=== PATIENT | male | born 1935 | race Caucasian/White ===

== ENCOUNTER 2019-12-25 15:27 | Inpatient (IN) | payer OTHER, MEDICAID, SELFPAY ==
[~2019-12-25] VITALS: Ht 165.1 cm; Wt 44.9 kg
[2019-12-25 15:30] VITALS: BP_SYST 104
[2019-12-25] MEDS ORDERED: NACL 0.9% 1,000 ML IV ONE ×2 (15:31→16:30)
[2019-12-25 16:24] LABS: WHITE BLOOD COUNT (AUTO) 12.7 K/uL (4.8-10.8)
[2019-12-25 16:25] LABS: HEMATOCRIT 52.1 % (36-54); HEMOGLOBIN 16.9 g/dL (14.0-18.0); MEAN CORPUSCULAR HEMOGLOBIN 30 pg (27-31); MEAN CORPUSCULAR HGB CONC 32 % (32-36); MEAN CORPUSCULAR VOLUME 92 fL (79.0-98.0); NEUTROPHILS % (AUTO) 80.6 % (40.0-70.0); PLATELET COUNT (AUTO) 208 K/uL (130-430); RED BLOOD CELL COUNT(AUTO) 5.67 MIL/uL (4.2-6.2); RED CELL DISTRIBUTION WIDTH 16.2 % (9.0-15.0)
[2019-12-25 16:26] LABS: BASOPHILS % (AUTO) 0.4 % (0.0-2.0); EOSINOPHILS % (AUTO) 0.2 % (0.0-4.0); LYMPHOCYTES # (AUTO) 1.6 K/uL (1.0-5.5); LYMPHOCYTES % (AUTO) 12.6 % (20.5-51.5); MONOCYTES # (AUTO) 0.8 K/uL (0.0-1.0); MONOCYTES % (AUTO) 6.2 % (1.7-9.3); NEUTROPHILS # (AUTO) 10.2 K/uL (1.8-7.7)
[2019-12-25 16:30] LABS: ANION GAP 14 (5-15); CALCIUM 8.7 mg/dL (8.4-11.0); CREATININE 2.22 mg/dL (0.55-1.30); GLUCOSE 118 mg/dL (70-99); POTASSIUM 3.6 mmol/L (3.5-5.1); UREA NITROGEN, BLOOD 94 mg/dL (8-21)
[2019-12-25 16:32] LABS: INR 1.4 (0.80-1.20); PROTHROMBIN TIME 13.6 SECS (9.5-12.5)
[2019-12-25 16:33] LABS: CHLORIDE 130 mmol/L (98-107); SODIUM SERUM 168 mmol/L (136-145)
[2019-12-25 16:38] LABS: ALANINE AMINOTRANSFERASE 169 U/L (12-78); ALBUMIN 2.7 g/dL (3.4-4.8); AMYLASE 84 U/L (0-100); ASPARTATE AMINOTRANSFERASE 93 U/L (10-37); LIPASE 567 U/L (73-393); TOTAL BILIRUBIN 1.4 mg/dL (0.0-1.0)
[2019-12-25] MEDS ORDERED: NACL 0.9% 2,000 ML IV ONE (16:45)
[2019-12-25] MEDS ORDERED: cefTRIAXone 1 GM IVPB PREMIX 50 ML IV ONE (17:00)
[2019-12-25] MEDS ORDERED: METO25TA6 PO (17:23)
[2019-12-25] MEDS ORDERED: ACET-2165 PO (17:23)
[2019-12-25] MEDS ORDERED: DOCU-144 PO (17:23)
[2019-12-25] MEDS ORDERED: FAMO-129 PO (17:23)
[2019-12-25] MEDS ORDERED: LIP40 PO (17:23)
[2019-12-25] MEDS ORDERED: GUAI100S14 PO (17:23)
[2019-12-25] MEDS ORDERED: TAMS-11 PO (17:23)
[2019-12-25] MEDS ORDERED: ZOLP5TAB2 PO (17:23)
[2019-12-25] MEDS ORDERED: APIX5TAB PO (17:23)
[2019-12-25] MEDS ORDERED: ANT30 PO (17:23)
[2019-12-25] MEDS ORDERED: 0.45% NACL 1,000 ML IV ONE (17:30)
[2019-12-25] MEDS ORDERED: AZITHROMYCIN 500 MG in NS 250 ML IV ONE (17:30)
[2019-12-25] MEDS ORDERED: MULT-530 PO (17:33)
[2019-12-25] MEDS ORDERED: ASCO500T20 PO (17:33)
[2019-12-25] MEDS ORDERED: omeprazole PO (17:33)
[2019-12-25] MEDS ORDERED: MEGE40TA PO (17:33)
[2019-12-25] MEDS ORDERED: ZINC220T4 PO (17:33)
[2019-12-25] MEDS ORDERED: AZITHROMYCIN 500 MG/VIAL (ZITHROMAX) IV ONE (17:47)
[2019-12-25 18:29] LABS: BILIRUBIN,URINE 2+ (NEGATIVE); BLOOD, URINE 3+ (NEGATIVE); CLARITY/URINE TURBID (CLEAR); COLOR,URINE YELLOW (YELLOW); GLUCOSE,URINE NEGATIVE (NEGATIVE); KETONES,URINE TRACE (NEGATIVE); LEUKOCYTE ESTERASE ,URINE 2+ (NEGATIVE); NITRITE, URINE POSITIVE (NEGATIVE); PROTEIN URINE 2+ (NEGATIVE)
[2019-12-25 18:32] VITALS: BP_SYST 90
[2019-12-25 18:56] LABS: BACTERIA,URINE MANY /HPF (None Seen); RBC,URINE >100 /HPF (0-3); WBC,URINE >100 /HPF (0-3)
[2019-12-25 18:57] LABS: CALCIUM OXALATE CRYSTALS,UR 0-10 /HPF (None Seen); URINE AMORPHOUS PHOSPHATES 3+ /HPF (None Seen)
[2019-12-25 18:58] LABS: COARSE GRANULAR CASTS,URINE 0-10 /LPF (None Seen); MUCUS,URINE 2+ /LPF (None Seen)
[2019-12-25 21:00] VITALS: BP_SYST 137
[2019-12-26 02:00] VITALS: BP_SYST 135
[2019-12-26 07:30] LABS: ANION GAP 15 (5-15); CALCIUM 8.5 mg/dL (8.4-11.0); CREATININE 1.97 mg/dL (0.55-1.30); GLUCOSE 92 mg/dL (70-99); POTASSIUM 3.8 mmol/L (3.5-5.1); UREA NITROGEN, BLOOD 86 mg/dL (8-21)
[2019-12-26 07:33] LABS: BASOPHILS % (AUTO) 0.2 % (0.0-2.0); EOSINOPHILS # (AUTO) 0.1 K/uL (0.0-0.4); EOSINOPHILS % (AUTO) 0.9 % (0.0-4.0); HEMATOCRIT 47.6 % (36-54); HEMOGLOBIN 15.5 g/dL (14.0-18.0); LYMPHOCYTES # (AUTO) 2.2 K/uL (1.0-5.5); LYMPHOCYTES % (AUTO) 14.3 % (20.5-51.5); MEAN CORPUSCULAR HEMOGLOBIN 30 pg (27-31); MEAN CORPUSCULAR HGB CONC 33 % (32-36); MEAN CORPUSCULAR VOLUME 91 fL (79.0-98.0); MONOCYTES # (AUTO) 1.3 K/uL (0.0-1.0); MONOCYTES % (AUTO) 8.7 % (1.7-9.3); NEUTROPHILS # (AUTO) 11.5 K/uL (1.8-7.7); NEUTROPHILS % (AUTO) 75.9 % (40.0-70.0); PLATELET COUNT (AUTO) 164 K/uL (130-430); RED CELL DISTRIBUTION WIDTH 16.3 % (9.0-15.0); WHITE BLOOD COUNT (AUTO) 15.2 K/uL (4.8-10.8)
[2019-12-26 07:35] LABS: ALANINE AMINOTRANSFERASE 164 U/L (12-78); ALBUMIN 2.3 g/dL (3.4-4.8); ASPARTATE AMINOTRANSFERASE 114 U/L (10-37); TOTAL BILIRUBIN 1.1 mg/dL (0.0-1.0)
[2019-12-26 08:00] VITALS: BP_SYST 114
[2019-12-26 08:35] LABS: SODIUM SERUM 165 mmol/L (136-145)
[2019-12-26 08:36] LABS: CHLORIDE 130 mmol/L (98-107)
[2019-12-26] MEDS: cefTRIAXone 1 GM in D5W 50 ML IV SCH (09:00)
[2019-12-26] MEDS: AZITHROMYCIN 500 MG in NS 250 ML IV SCH (09:09)
[2019-12-26] MEDS ORDERED: 0.45% NACL 1,000 ML IV SCH (09:15)
[2019-12-26] MEDS: D5W 1,000 ML IV SCH ×2 (10:30→20:30)
[2019-12-26 12:00] VITALS: BP_SYST 103
[2019-12-26] MEDS: BALSAM PERU/CASTOR OIL 60 GM OINT...G. TP SCH ×2 (15:30→16:45)
[2019-12-26 16:00] VITALS: BP_SYST 119
[2019-12-26 20:00] VITALS: BP_SYST 146; BP_SYST 99
[2019-12-27] VITALS: BP_SYST 123
[2019-12-27] MEDS: D5W 1,000 ML IV SCH ×2 (05:43→15:15)
[2019-12-27 07:47] LABS: EOSINOPHILS # (AUTO) 0.2 K/uL (0.0-0.4); EOSINOPHILS % (AUTO) 1.2 % (0.0-4.0); HEMATOCRIT 43.1 % (36-54); HEMOGLOBIN 13.9 g/dL (14.0-18.0); LYMPHOCYTES # (AUTO) 1.8 K/uL (1.0-5.5); LYMPHOCYTES % (AUTO) 13.8 % (20.5-51.5); MEAN CORPUSCULAR HEMOGLOBIN 29 pg (27-31); MEAN CORPUSCULAR HGB CONC 32 % (32-36); MEAN CORPUSCULAR VOLUME 91 fL (79.0-98.0); MONOCYTES # (AUTO) 0.7 K/uL (0.0-1.0); MONOCYTES % (AUTO) 5.1 % (1.7-9.3); NEUTROPHILS # (AUTO) 10.4 K/uL (1.8-7.7); NEUTROPHILS % (AUTO) 79.9 % (40.0-70.0); PLATELET COUNT (AUTO) 132 K/uL (130-430); RED BLOOD CELL COUNT(AUTO) 4.73 MIL/uL (4.2-6.2); RED CELL DISTRIBUTION WIDTH 16.4 % (9.0-15.0)
[2019-12-27 08:00] VITALS: BP_SYST 101
[2019-12-27] MEDS: cefTRIAXone 1 GM in D5W 50 ML IV SCH (08:55)
[2019-12-27] MEDS: AZITHROMYCIN 500 MG in NS 250 ML IV SCH (09:30)
[2019-12-27 09:33] LABS: POTASSIUM 3.3 mmol/L (3.5-5.1); SODIUM SERUM 164 mmol/L (136-145)
[2019-12-27 09:34] LABS: ALANINE AMINOTRANSFERASE 613 U/L (12-78); ANION GAP 12 (5-15); ASPARTATE AMINOTRANSFERASE 780 U/L (10-37); CALCIUM 8.1 mg/dL (8.4-11.0); CHLORIDE 132 mmol/L (98-107); CREATININE 1.77 mg/dL (0.55-1.30); GLUCOSE 93 mg/dL (70-99); UREA NITROGEN, BLOOD 69 mg/dL (8-21)
[2019-12-27 09:35] LABS: PHOSPHORUS 1.7 mg/dL (2.7-4.5)
[2019-12-27 10:14] LABS: HEPATITIS A AB, IgM Negative (Negative); HEPATITIS B CORE AB, IgM Negative (Negative); HEPATITIS B SURFACE AG Negative (Negative)
[2019-12-27] MEDS ORDERED: POTASSIUM CHLORIDE 20 MEQ in NS 250 ML IV ONE (10:15)
[2019-12-27] MEDS: BALSAM PERU/CASTOR OIL 60 GM OINT...G. TP SCH ×2 (11:31)
[2019-12-27] MEDS ORDERED: POTASSIUM CHLORIDE IV ONE (11:45)
[2019-12-27 12:00] VITALS: BP_SYST 118
[2019-12-27] MEDS ORDERED: K PHOS 15 MM in NS 250 ML IV ONE (14:30)
[2019-12-27 16:00] VITALS: BP_SYST 112
[2019-12-27 20:00] VITALS: BP_SYST 110
[2019-12-28] VITALS: BP_SYST 119
[2019-12-28] MEDS: D5W 1,000 ML IV SCH ×3 (03:07→15:15)
[2019-12-28 07:06] LABS: INR 1.4 (0.80-1.20); PROTHROMBIN TIME 13.7 SECS (9.5-12.5)
[2019-12-28 07:15] LABS: ANION GAP 10 (5-15); CALCIUM 7.4 mg/dL (8.4-11.0); CREATININE 1.48 mg/dL (0.55-1.30); GLUCOSE 122 mg/dL (70-99); PHOSPHORUS 2.3 mg/dL (2.7-4.5); SODIUM SERUM 153 mmol/L (136-145); UREA NITROGEN, BLOOD 45 mg/dL (8-21)
[2019-12-28 07:37] LABS: CHLORIDE 123 mmol/L (98-107)
[2019-12-28 08:00] VITALS: BP_SYST 96
[2019-12-28] MEDS: cefTRIAXone 1 GM in D5W 50 ML IV SCH (09:27)
[2019-12-28] MEDS: AZITHROMYCIN 500 MG in NS 250 ML IV SCH (10:00)
[2019-12-28 12:00] VITALS: BP_SYST 89
[2019-12-28] MEDS ORDERED: ALBUMIN HUMAN 25% 200 ML IV ONE (14:30)
[2019-12-28] MEDS: BALSAM PERU/CASTOR OIL 60 GM OINT...G. TP SCH ×2 (15:15)
[2019-12-28 16:00] VITALS: BP_SYST 111
[2019-12-28] MEDS ORDERED: K PHOS 30 MM in NS 250 ML IV ONE (16:30)
[2019-12-28 20:32] VITALS: BP_SYST 91
[2019-12-29 00:20] VITALS: BP_SYST 92
[2019-12-29] MEDS: D5W 1,000 ML IV SCH ×3 (06:00→16:42)
[2019-12-29] MEDS: BALSAM PERU/CASTOR OIL 60 GM OINT...G. TP SCH (06:00)
[2019-12-29 07:18] LABS: BASOPHILS % (AUTO) 0.1 % (0.0-2.0); EOSINOPHILS # (AUTO) 0.1 K/uL (0.0-0.4); EOSINOPHILS % (AUTO) 1.7 % (0.0-4.0); HEMATOCRIT 36.7 % (36-54); HEMOGLOBIN 12.5 g/dL (14.0-18.0); LYMPHOCYTES % (AUTO) 27.3 % (20.5-51.5); MEAN CORPUSCULAR HEMOGLOBIN 30 pg (27-31); MEAN CORPUSCULAR HGB CONC 34 % (32-36); MEAN CORPUSCULAR VOLUME 89 fL (79.0-98.0); MONOCYTES # (AUTO) 0.3 K/uL (0.0-1.0); NEUTROPHILS # (AUTO) 4.9 K/uL (1.8-7.7); NEUTROPHILS % (AUTO) 66.9 % (40.0-70.0); PLATELET COUNT (AUTO) 113 K/uL (130-430); RED BLOOD CELL COUNT(AUTO) 4.15 MIL/uL (4.2-6.2); RED CELL DISTRIBUTION WIDTH 15.7 % (9.0-15.0); WHITE BLOOD COUNT (AUTO) 7.3 K/uL (4.8-10.8)
[2019-12-29 07:40] LABS: ANION GAP 13 (5-15); CALCIUM 7.1 mg/dL (8.4-11.0); CHLORIDE 114 mmol/L (98-107); GLUCOSE 82 mg/dL (70-99); PHOSPHORUS 3.1 mg/dL (2.7-4.5); POTASSIUM 3.1 mmol/L (3.5-5.1); SODIUM SERUM 145 mmol/L (136-145); UREA NITROGEN, BLOOD 26 mg/dL (8-21)
[2019-12-29 08:00] VITALS: BP_SYST 110
[2019-12-29] MEDS: cefTRIAXone 1 GM in D5W 50 ML IV SCH (09:09)
[2019-12-29] MEDS: AZITHROMYCIN 500 MG in NS 250 ML IV SCH (09:41)
[2019-12-29 11:53] LABS: CREATININE, URINE 108.8 mg/dL; MICROALBUMIN URINE RANDOM 77.5 ug/ml (NOT ESTABLISHED)
[2019-12-29 12:00] VITALS: BP_SYST 109
[2019-12-29] MEDS: POTASSIUM CHLORIDE 10 MEQ TAB.PRT.SR PO SCH (13:15)
[2019-12-29 16:00] VITALS: BP_SYST 116
[2019-12-29 20:00] VITALS: BP_SYST 132
[2019-12-30] VITALS: BP_SYST 111
[2019-12-30] MEDS: D5W 1,000 ML IV SCH ×2 (08:25→19:15)
[2019-12-30] MEDS: BALSAM PERU/CASTOR OIL 60 GM OINT...G. TP SCH (08:33)
[2019-12-30] MEDS: cefTRIAXone 1 GM in D5W 50 ML IV SCH (08:34)
[2019-12-30] MEDS: POTASSIUM CHLORIDE 10 MEQ TAB.PRT.SR PO SCH (09:03)
[2019-12-30] MEDS: AZITHROMYCIN 500 MG in NS 250 ML IV SCH (09:50)
[2019-12-30 12:29] VITALS: BP_SYST 98
[2019-12-30] MEDS ORDERED: MEGESTROL ACETATE 400 MG/10 ML UDC PO ONE (14:45)
[2019-12-30 15:01] LABS: ALANINE AMINOTRANSFERASE 209 U/L (12-78); ALBUMIN 2.1 g/dL (3.4-4.8); ANION GAP 10 (5-15); ASPARTATE AMINOTRANSFERASE 77 U/L (10-37); CALCIUM 7.1 mg/dL (8.4-11.0); CHLORIDE 113 mmol/L (98-107); CREATININE 1.16 mg/dL (0.55-1.30); GLUCOSE 105 mg/dL (70-99); POTASSIUM 3.3 mmol/L (3.5-5.1); SODIUM SERUM 142 mmol/L (136-145); TOTAL BILIRUBIN 1.2 mg/dL (0.0-1.0); UREA NITROGEN, BLOOD 18 mg/dL (8-21)
[2019-12-30 16:13] VITALS: BP_SYST 132
[2019-12-30 20:00] VITALS: BP_SYST 102
[2019-12-30] MEDS ORDERED: IPRATROPIUM/ALBUTEROL SULFATE 3 ML AMPUL.NEB (DUONEB) INH PRN (21:15)
[2019-12-31] VITALS: BP_SYST 109
[2019-12-31 06:51] LABS: ALANINE AMINOTRANSFERASE 176 U/L (12-78); ANION GAP 10 (5-15); ASPARTATE AMINOTRANSFERASE 66 U/L (10-37); CALCIUM 7.7 mg/dL (8.4-11.0); CHLORIDE 108 mmol/L (98-107); CREATININE 1.06 mg/dL (0.55-1.30); GLUCOSE 86 mg/dL (70-99); SODIUM SERUM 139 mmol/L (136-145); TOTAL BILIRUBIN 1.3 mg/dL (0.0-1.0); UREA NITROGEN, BLOOD 17 mg/dL (8-21)
[2019-12-31 08:20] VITALS: BP_SYST 109
[2019-12-31 08:32] LABS: POTASSIUM 2.9 mmol/L (3.5-5.1)
[2019-12-31] MEDS: D5W 1,000 ML IV SCH (08:35)
[2019-12-31] MEDS: BALSAM PERU/CASTOR OIL 60 GM OINT...G. TP SCH (09:00)
[2019-12-31] MEDS: POTASSIUM CHLORIDE 10 MEQ TAB.PRT.SR PO SCH (10:15)
[2019-12-31] MEDS: MEGESTROL ACETATE 400 MG/10 ML UDC PO SCH (10:16)
[2019-12-31] MEDS: cefTRIAXone 1 GM in D5W 50 ML IV SCH (10:16)
[2019-12-31 12:30] VITALS: BP_SYST 103
[2019-12-31] MEDS ORDERED: SPIRONOLACTONE 25 MG TABLET (ALDACTONE) PO ONE (15:00)
[2019-12-31] MEDS ORDERED: DEXTROSE 50% JECT 50 ML DISP.SYRIN IVP PRN (16:00)
[2019-12-31] MEDS ORDERED: INSULIN REGULAR, HUMAN 100 UNITS/ML, 10 ML VIAL (humuLIN R) SUBCUT PRN (16:00)
[2019-12-31] MEDS ORDERED: *TPN PER PHARMACY XX PRN (16:00)
[2019-12-31 16:32] LABS: INR 1.3 (0.80-1.20); PROTHROMBIN TIME 13.1 SECS (9.5-12.5)
[2019-12-31 17:16] VITALS: BP_SYST 116
[2019-12-31] MEDS: D5/0.45 NS 1,000 ML IV SCH (17:16)
[2019-12-31 20:10] VITALS: BP_SYST 137
[2019-12-31] MEDS: POTASSIUM CHLORIDE 20 MEQ TAB.PRT.SR PO SCH (20:18)
[2020-01-01 00:10] VITALS: BP_SYST 151
[2020-01-01] MEDS: D5/0.45 NS 1,000 ML IV SCH ×2 (06:23→19:50)
[2020-01-01] MEDS: cefTRIAXone 1 GM in D5W 50 ML IV SCH (07:57)
[2020-01-01] MEDS: POTASSIUM CHLORIDE 20 MEQ TAB.PRT.SR PO SCH ×2 (07:58→21:53)
[2020-01-01] MEDS: BALSAM PERU/CASTOR OIL 60 GM OINT...G. TP SCH (07:58)
[2020-01-01] MEDS: MEGESTROL ACETATE 400 MG/10 ML UDC PO SCH (07:58)
[2020-01-01 08:00] VITALS: BP_SYST 125
[2020-01-01 08:21] LABS: ALANINE AMINOTRANSFERASE 161 U/L (12-78); ALBUMIN 1.9 g/dL (3.4-4.8); ANION GAP 8 (5-15); ASPARTATE AMINOTRANSFERASE 74 U/L (10-37); CALCIUM 7.6 mg/dL (8.4-11.0); CHLORIDE 108 mmol/L (98-107); CREATININE 0.89 mg/dL (0.55-1.30); GLUCOSE 85 mg/dL (70-99); PHOSPHORUS 1.4 mg/dL (2.7-4.5); POTASSIUM 3.7 mmol/L (3.5-5.1); SODIUM SERUM 136 mmol/L (136-145); TRIGLYCERIDES 87 mg/dL (30-150); UREA NITROGEN, BLOOD 12 mg/dL (8-21)
[2020-01-01] MEDS: SPIRONOLACTONE 25 MG TABLET (ALDACTONE) PO SCH (08:42)
[2020-01-01 12:35] VITALS: BP_SYST 119
[2020-01-01] MEDS ORDERED: NA PHOS 30 MM in NS 250 ML IV ONE (17:00)
[2020-01-01 18:00] VITALS: BP_SYST 102
[2020-01-01 19:30] VITALS: BP_SYST 94
[2020-01-01] MEDS: FAT EMULSIONS 250 ML IV SCH (20:36)
[2020-01-01] MEDS ORDERED: TPN PERIPHERAL IV SCH ×9 (21:00)
[2020-01-01] MEDS ORDERED: SODIUM ACETATE IV SCH ×9 (21:00)
[2020-01-01] MEDS ORDERED: [UNRECOGNIZED DRUG - OTHER] IV SCH ×9 (21:00)
[2020-01-01] MEDS ORDERED: NA PHOS IV SCH ×9 (21:00)
[2020-01-02] VITALS: BP_SYST 98
[2020-01-02 07:56] LABS: ALANINE AMINOTRANSFERASE 126 U/L (12-78); ALBUMIN 1.6 g/dL (3.4-4.8); ANION GAP 11 (5-15); ASPARTATE AMINOTRANSFERASE 50 U/L (10-37); CALCIUM 7.3 mg/dL (8.4-11.0); CHLORIDE 107 mmol/L (98-107); GLUCOSE 92 mg/dL (70-99); PHOSPHORUS 3.6 mg/dL (2.7-4.5); POTASSIUM 3.5 mmol/L (3.5-5.1); SODIUM SERUM 137 mmol/L (136-145); TOTAL BILIRUBIN 0.7 mg/dL (0.0-1.0); UREA NITROGEN, BLOOD 11 mg/dL (8-21)
[2020-01-02 08:08] VITALS: BP_SYST 128
[2020-01-02] MEDS: SPIRONOLACTONE 25 MG TABLET (ALDACTONE) PO SCH (09:00)
[2020-01-02] MEDS: MEGESTROL ACETATE 400 MG/10 ML UDC PO SCH (09:00)
[2020-01-02] MEDS: POTASSIUM CHLORIDE 20 MEQ TAB.PRT.SR PO SCH ×2 (09:00→21:19)
[2020-01-02] MEDS: cefTRIAXone 1 GM in D5W 50 ML IV SCH (09:36)
[2020-01-02] MEDS: BALSAM PERU/CASTOR OIL 60 GM OINT...G. TP SCH (09:37)
[2020-01-02 12:00] VITALS: BP_SYST 113
[2020-01-02] MEDS: D5/0.45 NS 1,000 ML IV SCH (15:00)
[2020-01-02 16:21] VITALS: BP_SYST 108
[2020-01-02] MEDS ORDERED: [UNRECOGNIZED DRUG - OTHER] IV SCH ×9 (21:00)
[2020-01-02] MEDS ORDERED: SODIUM ACETATE IV SCH ×9 (21:00)
[2020-01-02] MEDS ORDERED: TPN PERIPHERAL IV SCH ×9 (21:00)
[2020-01-02] MEDS ORDERED: POTASSIUM ACETATE IV SCH ×9 (21:00)
[2020-01-02] MEDS: FAT EMULSIONS 250 ML IV SCH (21:20)
[2020-01-02 21:29] VITALS: BP_SYST 110
[2020-01-03] MEDS: D5/0.45 NS 1,000 ML IV SCH ×2 (01:05→14:30)
[2020-01-03 01:12] VITALS: BP_SYST 106
[2020-01-03 07:46] LABS: BASOPHILS % (AUTO) 0.2 % (0.0-2.0); EOSINOPHILS # (AUTO) 0.1 K/uL (0.0-0.4); EOSINOPHILS % (AUTO) 0.9 % (0.0-4.0); HEMATOCRIT 36.4 % (36-54); HEMOGLOBIN 12.3 g/dL (14.0-18.0); LYMPHOCYTES # (AUTO) 1.5 K/uL (1.0-5.5); LYMPHOCYTES % (AUTO) 25.1 % (20.5-51.5); MEAN CORPUSCULAR HEMOGLOBIN 30 pg (27-31); MEAN CORPUSCULAR HGB CONC 34 % (32-36); MEAN CORPUSCULAR VOLUME 89 fL (79.0-98.0); MONOCYTES # (AUTO) 0.5 K/uL (0.0-1.0); MONOCYTES % (AUTO) 7.7 % (1.7-9.3); NEUTROPHILS # (AUTO) 4.1 K/uL (1.8-7.7); NEUTROPHILS % (AUTO) 66.1 % (40.0-70.0); PLATELET COUNT (AUTO) 106 K/uL (130-430); RED CELL DISTRIBUTION WIDTH 15.3 % (9.0-15.0); WHITE BLOOD COUNT (AUTO) 6.1 K/uL (4.8-10.8)
[2020-01-03 08:00] VITALS: BP_SYST 128
[2020-01-03 08:20] LABS: ALANINE AMINOTRANSFERASE 111 U/L (12-78); ALBUMIN 1.6 g/dL (3.4-4.8); ANION GAP 7 (5-15); ASPARTATE AMINOTRANSFERASE 50 U/L (10-37); CALCIUM 7.5 mg/dL (8.4-11.0); CHLORIDE 105 mmol/L (98-107); CREATININE 0.82 mg/dL (0.55-1.30); GLUCOSE 82 mg/dL (70-99); POTASSIUM 3.8 mmol/L (3.5-5.1); SODIUM SERUM 136 mmol/L (136-145); TOTAL BILIRUBIN 0.6 mg/dL (0.0-1.0); UREA NITROGEN, BLOOD 15 mg/dL (8-21)
[2020-01-03] MEDS: POTASSIUM CHLORIDE 20 MEQ TAB.PRT.SR PO SCH ×2 (10:06→21:55)
[2020-01-03] MEDS: BALSAM PERU/CASTOR OIL 60 GM OINT...G. TP SCH (10:06)
[2020-01-03] MEDS: SPIRONOLACTONE 25 MG TABLET (ALDACTONE) PO SCH (10:06)
[2020-01-03] MEDS: MEGESTROL ACETATE 400 MG/10 ML UDC PO SCH (10:06)
[2020-01-03] MEDS: cefTRIAXone 1 GM in D5W 50 ML IV SCH (10:06)
[2020-01-03 12:00] VITALS: BP_SYST 126
[2020-01-03 16:15] VITALS: BP_SYST 112
[2020-01-03 21:45] VITALS: BP_SYST 118
[2020-01-03] MEDS: FAT EMULSIONS 250 ML IV SCH (21:55)
[2020-01-03] MEDS: TPN CENTRAL IV SCH ×10 (21:55)
[2020-01-03] MEDS: POTASSIUM ACETATE IV SCH ×10 (21:55)
[2020-01-03] MEDS: SODIUM ACETATE IV SCH ×10 (21:55)
[2020-01-03] MEDS: K PHOS IV SCH ×10 (21:55)
[2020-01-03] MEDS: [UNRECOGNIZED DRUG - OTHER] IV SCH ×10 (21:55)
[2020-01-04] VITALS: BP_SYST 124
[2020-01-04] MEDS: D5/0.45 NS 1,000 ML IV SCH ×2 (05:50→17:09)
[2020-01-04 07:14] LABS: BASOPHILS % (AUTO) 0.3 % (0.0-2.0); EOSINOPHILS # (AUTO) 0.1 K/uL (0.0-0.4); EOSINOPHILS % (AUTO) 1.1 % (0.0-4.0); HEMATOCRIT 32.7 % (36-54); HEMOGLOBIN 11.1 g/dL (14.0-18.0); LYMPHOCYTES # (AUTO) 1.6 K/uL (1.0-5.5); LYMPHOCYTES % (AUTO) 27.9 % (20.5-51.5); MEAN CORPUSCULAR HEMOGLOBIN 30 pg (27-31); MEAN CORPUSCULAR HGB CONC 34 % (32-36); MEAN CORPUSCULAR VOLUME 89 fL (79.0-98.0); MONOCYTES # (AUTO) 0.4 K/uL (0.0-1.0); MONOCYTES % (AUTO) 6.7 % (1.7-9.3); NEUTROPHILS # (AUTO) 3.6 K/uL (1.8-7.7); PLATELET COUNT (AUTO) 109 K/uL (130-430); RED CELL DISTRIBUTION WIDTH 15.3 % (9.0-15.0); WHITE BLOOD COUNT (AUTO) 5.6 K/uL (4.8-10.8)
[2020-01-04 07:41] LABS: ALANINE AMINOTRANSFERASE 107 U/L (12-78); ALBUMIN 1.5 g/dL (3.4-4.8); ANION GAP 5 (5-15); ASPARTATE AMINOTRANSFERASE 52 U/L (10-37); CALCIUM 7.5 mg/dL (8.4-11.0); CHLORIDE 103 mmol/L (98-107); GLUCOSE 112 mg/dL (70-99); PHOSPHORUS 1.8 mg/dL (2.7-4.5); POTASSIUM 4.3 mmol/L (3.5-5.1); SODIUM SERUM 132 mmol/L (136-145); TOTAL BILIRUBIN 0.6 mg/dL (0.0-1.0); TRIGLYCERIDES 48 mg/dL (30-150); UREA NITROGEN, BLOOD 16 mg/dL (8-21)
[2020-01-04 08:00] VITALS: BP_SYST 112
[2020-01-04] MEDS: MEGESTROL ACETATE 400 MG/10 ML UDC PO SCH (08:03)
[2020-01-04] MEDS: POTASSIUM CHLORIDE 20 MEQ TAB.PRT.SR PO SCH ×2 (08:03→21:00)
[2020-01-04] MEDS: cefTRIAXone 1 GM in D5W 50 ML IV SCH (08:03)
[2020-01-04] MEDS: BALSAM PERU/CASTOR OIL 60 GM OINT...G. TP SCH (08:03)
[2020-01-04] MEDS: SPIRONOLACTONE 25 MG TABLET (ALDACTONE) PO SCH (08:25)
[2020-01-04 12:00] VITALS: BP_SYST 103
[2020-01-04 16:00] VITALS: BP_SYST 111
[2020-01-04] MEDS ORDERED: NA PHOS 30 MM in NS 250 ML IV ONE (18:00)
[2020-01-04 20:00] VITALS: BP_SYST 127
[2020-01-04] MEDS: FAT EMULSIONS 250 ML IV SCH (20:31)
[2020-01-04] MEDS ORDERED: TPN CENTRAL IV SCH ×10 (21:00)
[2020-01-04] MEDS ORDERED: NA PHOS IV SCH ×10 (21:00)
[2020-01-04] MEDS ORDERED: SODIUM CHLORIDE IV SCH ×10 (21:00)
[2020-01-04] MEDS ORDERED: D5/0.45 NS 1,000 ML IV SCH (21:00)
[2020-01-04] MEDS ORDERED: SODIUM ACETATE IV SCH ×10 (21:00)
[2020-01-04] MEDS ORDERED: [UNRECOGNIZED DRUG - OTHER] IV SCH ×10 (21:00)
[2020-01-05] VITALS: BP_SYST 118
[2020-01-05] MEDS: [UNRECOGNIZED DRUG - OTHER] IV SCH ×10 (07:20)
[2020-01-05] MEDS: TPN CENTRAL IV SCH ×10 (07:20)
[2020-01-05] MEDS: SODIUM ACETATE IV SCH ×10 (07:20)
[2020-01-05] MEDS: K PHOS IV SCH ×10 (07:20)
[2020-01-05] MEDS: POTASSIUM ACETATE IV SCH ×10 (07:20)
[2020-01-05 07:48] LABS: ALANINE AMINOTRANSFERASE 96 U/L (12-78); ALBUMIN 1.3 g/dL (3.4-4.8); ANION GAP 7 (5-15); ASPARTATE AMINOTRANSFERASE 41 U/L (10-37); CALCIUM 7.3 mg/dL (8.4-11.0); CHLORIDE 103 mmol/L (98-107); GLUCOSE 114 mg/dL (70-99); PHOSPHORUS 4.9 mg/dL (2.7-4.5); POTASSIUM 4.2 mmol/L (3.5-5.1); SODIUM SERUM 133 mmol/L (136-145); TOTAL BILIRUBIN 0.5 mg/dL (0.0-1.0); UREA NITROGEN, BLOOD 17 mg/dL (8-21)
[2020-01-05 08:00] VITALS: BP_SYST 117
[2020-01-05] MEDS: SPIRONOLACTONE 25 MG TABLET (ALDACTONE) PO SCH (09:27)
[2020-01-05] MEDS: cefTRIAXone 1 GM in D5W 50 ML IV SCH (09:27)
[2020-01-05] MEDS: MEGESTROL ACETATE 400 MG/10 ML UDC PO SCH (09:28)
[2020-01-05] MEDS: POTASSIUM CHLORIDE 20 MEQ TAB.PRT.SR PO SCH ×2 (09:28→21:03)
[2020-01-05] MEDS: BALSAM PERU/CASTOR OIL 60 GM OINT...G. TP SCH (09:28)
[2020-01-05 12:00] VITALS: BP_SYST 108
[2020-01-05 16:00] VITALS: BP_SYST 123
[2020-01-05] MEDS ORDERED: INSULIN REGULAR, HUMAN 100 UNITS/ML, 10 ML VIAL (humuLIN R) SUBCUT PRN (18:00)
[2020-01-05 20:00] VITALS: BP_SYST 121
[2020-01-05] MEDS: FAT EMULSIONS 250 ML IV SCH (20:18)
[2020-01-05] MEDS ORDERED: SODIUM CHLORIDE IV SCH ×9 (21:00)
[2020-01-05] MEDS ORDERED: SODIUM ACETATE IV SCH ×9 (21:00)
[2020-01-05] MEDS ORDERED: [UNRECOGNIZED DRUG - OTHER] IV SCH ×9 (21:00)
[2020-01-05] MEDS ORDERED: TPN CENTRAL IV SCH ×9 (21:00)
[2020-01-06] VITALS: BP_SYST 127
[2020-01-06 08:15] VITALS: BP_SYST 127
[2020-01-06] MEDS ORDERED: ACETAMINOPHEN 325 MG TABLET PO PRN (08:15)
[2020-01-06] MEDS ORDERED: ACETAMINOPHEN 325 MG TABLET ONE (08:30)
[2020-01-06] MEDS: SPIRONOLACTONE 25 MG TABLET (ALDACTONE) PO SCH (08:44)
[2020-01-06] MEDS: cefTRIAXone 1 GM in D5W 50 ML IV SCH (08:44)
[2020-01-06] MEDS: MEGESTROL ACETATE 400 MG/10 ML UDC PO SCH (08:44)
[2020-01-06] MEDS: POTASSIUM CHLORIDE 20 MEQ TAB.PRT.SR PO SCH ×2 (08:44→21:26)
[2020-01-06] MEDS: BALSAM PERU/CASTOR OIL 60 GM OINT...G. TP SCH (08:45)
[2020-01-06 17:30] LABS: ALANINE AMINOTRANSFERASE 68 U/L (12-78); ALBUMIN 1.3 g/dL (3.4-4.8); ANION GAP 4 (5-15); ASPARTATE AMINOTRANSFERASE 30 U/L (10-37); CALCIUM 7.8 mg/dL (8.4-11.0); CHLORIDE 108 mmol/L (98-107); CREATININE 0.81 mg/dL (0.55-1.30); GLUCOSE 120 mg/dL (70-99); PHOSPHORUS 1.6 mg/dL (2.7-4.5); POTASSIUM 4.6 mmol/L (3.5-5.1); SODIUM SERUM 137 mmol/L (136-145); TOTAL BILIRUBIN 0.4 mg/dL (0.0-1.0); UREA NITROGEN, BLOOD 22 mg/dL (8-21)
[2020-01-06] MEDS ORDERED: SODIUM CHLORIDE IV SCH ×9 (21:00)
[2020-01-06] MEDS ORDERED: TPN CENTRAL IV SCH ×9 (21:00)
[2020-01-06] MEDS ORDERED: SODIUM ACETATE IV SCH ×9 (21:00)
[2020-01-06] MEDS ORDERED: [UNRECOGNIZED DRUG - OTHER] IV SCH ×9 (21:00)
[2020-01-06] MEDS: FAT EMULSIONS 250 ML IV SCH (21:26)
[2020-01-06 21:30] VITALS: BP_SYST 116
[2020-01-07] VITALS: BP_SYST 122
[2020-01-07 08:00] VITALS: BP_SYST 104
[2020-01-07] MEDS: cefTRIAXone 1 GM in D5W 50 ML IV SCH (08:49)
[2020-01-07] MEDS: SPIRONOLACTONE 25 MG TABLET (ALDACTONE) PO SCH (08:50)
[2020-01-07] MEDS: POTASSIUM CHLORIDE 20 MEQ TAB.PRT.SR PO SCH ×2 (08:50→15:15)
[2020-01-07] MEDS: MEGESTROL ACETATE 400 MG/10 ML UDC PO SCH (08:51)
[2020-01-07] MEDS: BALSAM PERU/CASTOR OIL 60 GM OINT...G. TP SCH (08:51)
[2020-01-07 09:04] LABS: ALANINE AMINOTRANSFERASE 70 U/L (12-78); ALBUMIN 1.4 g/dL (3.4-4.8); ANION GAP 4 (5-15); ASPARTATE AMINOTRANSFERASE 30 U/L (10-37); CALCIUM 7.9 mg/dL (8.4-11.0); CHLORIDE 107 mmol/L (98-107); CREATININE 0.83 mg/dL (0.55-1.30); GLUCOSE 108 mg/dL (70-99); PHOSPHORUS 1.2 mg/dL (2.7-4.5); POTASSIUM 4.6 mmol/L (3.5-5.1); SODIUM SERUM 137 mmol/L (136-145); TOTAL BILIRUBIN 0.4 mg/dL (0.0-1.0); UREA NITROGEN, BLOOD 23 mg/dL (8-21)
[2020-01-07 12:00] VITALS: BP_SYST 118
[2020-01-07 16:20] VITALS: BP_SYST 121
[2020-01-07 20:00] VITALS: BP_SYST 127
[2020-01-07] MEDS: FAT EMULSIONS 250 ML IV SCH (20:43)
[2020-01-07] MEDS ORDERED: SODIUM CHLORIDE IV SCH ×10 (21:00)
[2020-01-07] MEDS ORDERED: TPN CENTRAL IV SCH ×10 (21:00)
[2020-01-07] MEDS ORDERED: [UNRECOGNIZED DRUG - OTHER] IV SCH ×10 (21:00)
[2020-01-07] MEDS ORDERED: SODIUM ACETATE IV SCH ×10 (21:00)
[2020-01-08] VITALS: BP_SYST 109
[2020-01-08 08:00] VITALS: BP_SYST 138
[2020-01-08 08:18] LABS: BASOPHILS % (AUTO) 0.3 % (0.0-2.0); EOSINOPHILS # (AUTO) 0.2 K/uL (0.0-0.4); EOSINOPHILS % (AUTO) 2.1 % (0.0-4.0); HEMATOCRIT 26.9 % (36-54); HEMOGLOBIN 9.1 g/dL (14.0-18.0); LYMPHOCYTES # (AUTO) 1.8 K/uL (1.0-5.5); LYMPHOCYTES % (AUTO) 25.6 % (20.5-51.5); MEAN CORPUSCULAR HEMOGLOBIN 31 pg (27-31); MEAN CORPUSCULAR HGB CONC 34 % (32-36); MEAN CORPUSCULAR VOLUME 91 fL (79.0-98.0); MONOCYTES # (AUTO) 0.8 K/uL (0.0-1.0); MONOCYTES % (AUTO) 10.7 % (1.7-9.3); NEUTROPHILS # (AUTO) 4.4 K/uL (1.8-7.7); NEUTROPHILS % (AUTO) 61.3 % (40.0-70.0); PLATELET COUNT (AUTO) 142 K/uL (130-430); RED BLOOD CELL COUNT(AUTO) 2.97 MIL/uL (4.2-6.2); WHITE BLOOD COUNT (AUTO) 7.2 K/uL (4.8-10.8)
[2020-01-08 08:40] LABS: ALANINE AMINOTRANSFERASE 66 U/L (12-78); ALBUMIN 1.4 g/dL (3.4-4.8); ANION GAP 4 (5-15); ASPARTATE AMINOTRANSFERASE 32 U/L (10-37); CALCIUM 7.8 mg/dL (8.4-11.0); CHLORIDE 106 mmol/L (98-107); CREATININE 0.82 mg/dL (0.55-1.30); GLUCOSE 75 mg/dL (70-99); PHOSPHORUS 1.3 mg/dL (2.7-4.5); POTASSIUM 4.6 mmol/L (3.5-5.1); SODIUM SERUM 136 mmol/L (136-145); TOTAL BILIRUBIN 0.4 mg/dL (0.0-1.0); UREA NITROGEN, BLOOD 22 mg/dL (8-21)
[2020-01-08] MEDS: POTASSIUM CHLORIDE 20 MEQ TAB.PRT.SR PO SCH (09:40)
[2020-01-08] MEDS: MEGESTROL ACETATE 400 MG/10 ML UDC PO SCH (09:40)
[2020-01-08] MEDS: SPIRONOLACTONE 25 MG TABLET (ALDACTONE) PO SCH (09:40)
[2020-01-08] MEDS: BALSAM PERU/CASTOR OIL 60 GM OINT...G. TP SCH (09:40)
[2020-01-08 12:30] VITALS: BP_SYST 124
[2020-01-08] MEDS ORDERED: NA PHOS 30 MM in NS 250 ML IV ONE (15:00)
[2020-01-08 16:10] VITALS: BP_SYST 121
[2020-01-08 20:00] VITALS: BP_SYST 114
[2020-01-08] MEDS: FAT EMULSIONS 250 ML IV SCH (20:16)
[2020-01-08] MEDS ORDERED: [UNRECOGNIZED DRUG - OTHER] IV SCH ×11 (21:00)
[2020-01-08] MEDS ORDERED: SODIUM ACETATE IV SCH ×11 (21:00)
[2020-01-08] MEDS ORDERED: TPN CENTRAL IV SCH ×11 (21:00)
[2020-01-08] MEDS ORDERED: SODIUM CHLORIDE IV SCH ×11 (21:00)
[2020-01-09] VITALS: BP_SYST 111
[2020-01-09 08:10] LABS: BASOPHILS # (AUTO) 0.1 K/uL (0.0-0.2); BASOPHILS % (AUTO) 0.8 % (0.0-2.0); EOSINOPHILS # (AUTO) 0.1 K/uL (0.0-0.4); EOSINOPHILS % (AUTO) 1.8 % (0.0-4.0); HEMATOCRIT 26.9 % (36-54); HEMOGLOBIN 8.9 g/dL (14.0-18.0); LYMPHOCYTES # (AUTO) 2.1 K/uL (1.0-5.5); LYMPHOCYTES % (AUTO) 34.6 % (20.5-51.5); MEAN CORPUSCULAR HEMOGLOBIN 31 pg (27-31); MEAN CORPUSCULAR HGB CONC 33 % (32-36); MEAN CORPUSCULAR VOLUME 92 fL (79.0-98.0); MONOCYTES # (AUTO) 0.5 K/uL (0.0-1.0); MONOCYTES % (AUTO) 7.8 % (1.7-9.3); NEUTROPHILS # (AUTO) 3.4 K/uL (1.8-7.7); PLATELET COUNT (AUTO) 155 K/uL (130-430); RED BLOOD CELL COUNT(AUTO) 2.92 MIL/uL (4.2-6.2); RED CELL DISTRIBUTION WIDTH 16.4 % (9.0-15.0); WHITE BLOOD COUNT (AUTO) 6.1 K/uL (4.8-10.8)
[2020-01-09 08:44] LABS: ALANINE AMINOTRANSFERASE 104 U/L (12-78); ALBUMIN 1.5 g/dL (3.4-4.8); ANION GAP 3 (5-15); ASPARTATE AMINOTRANSFERASE 47 U/L (10-37); CALCIUM 7.6 mg/dL (8.4-11.0); CHLORIDE 103 mmol/L (98-107); CREATININE 0.83 mg/dL (0.55-1.30); GLUCOSE 103 mg/dL (70-99); PHOSPHORUS 3.4 mg/dL (2.7-4.5); SODIUM SERUM 131 mmol/L (136-145); TOTAL BILIRUBIN 0.4 mg/dL (0.0-1.0); TRIGLYCERIDES 42 mg/dL (30-150); UREA NITROGEN, BLOOD 23 mg/dL (8-21)
[2020-01-09 08:50] VITALS: BP_SYST 110
[2020-01-09] MEDS: BALSAM PERU/CASTOR OIL 60 GM OINT...G. TP SCH (08:50)
[2020-01-09] MEDS: POTASSIUM CHLORIDE 20 MEQ TAB.PRT.SR PO SCH (10:20)
[2020-01-09] MEDS: SPIRONOLACTONE 25 MG TABLET (ALDACTONE) PO SCH (10:20)
[2020-01-09] MEDS: MEGESTROL ACETATE 400 MG/10 ML UDC PO SCH (10:20)
[2020-01-09 16:54] VITALS: BP_SYST 130
[2020-01-09 17:05] VITALS: BP_SYST 130
[2020-01-09 20:00] VITALS: BP_SYST 120
[2020-01-09] MEDS ORDERED: SODIUM CHLORIDE IV SCH ×11 (21:00)
[2020-01-09] MEDS ORDERED: SODIUM ACETATE IV SCH ×11 (21:00)
[2020-01-09] MEDS ORDERED: TPN CENTRAL IV SCH ×11 (21:00)
[2020-01-09] MEDS ORDERED: [UNRECOGNIZED DRUG - OTHER] IV SCH ×11 (21:00)
[2020-01-09] MEDS ORDERED: NA PHOS IV SCH ×11 (21:00)
[2020-01-09] MEDS: FAT EMULSIONS 250 ML IV SCH (21:36)
[2020-01-10 00:45] VITALS: BP_SYST 112
[2020-01-10 07:58] LABS: ANION GAP 7 (5-15); CALCIUM 8.1 mg/dL (8.4-11.0); CHLORIDE 104 mmol/L (98-107); GLUCOSE 107 mg/dL (70-99); PHOSPHORUS 2.6 mg/dL (2.7-4.5); POTASSIUM 4.2 mmol/L (3.5-5.1); SODIUM SERUM 136 mmol/L (136-145); UREA NITROGEN, BLOOD 26 mg/dL (8-21)
[2020-01-10 08:00] VITALS: BP_SYST 108
[2020-01-10] MEDS: MEGESTROL ACETATE 400 MG/10 ML UDC PO SCH (08:55)
[2020-01-10] MEDS: POTASSIUM CHLORIDE 20 MEQ TAB.PRT.SR PO SCH (08:55)
[2020-01-10] MEDS: SPIRONOLACTONE 25 MG TABLET (ALDACTONE) PO SCH (08:55)
[2020-01-10] MEDS: BALSAM PERU/CASTOR OIL 60 GM OINT...G. TP SCH (08:55)
[2020-01-10 12:00] VITALS: BP_SYST 131
[2020-01-10 14:28] VITALS: BP_SYST 131
[2020-01-10] MEDS ORDERED: SODIUM ACETATE IV SCH ×11 (21:00)
[2020-01-10] MEDS ORDERED: TPN CENTRAL IV SCH ×11 (21:00)
[2020-01-10] MEDS ORDERED: [UNRECOGNIZED DRUG - OTHER] IV SCH ×11 (21:00)
[2020-01-10] MEDS ORDERED: SODIUM CHLORIDE IV SCH ×11 (21:00)
[2020-01-10] MEDS ORDERED: NA PHOS IV SCH ×11 (21:00)
== END 2020-01-10 14:15 | DRG 871 ==
LOC: SED 15:27 → EEVIPCON 16:51 → STU 16:51 → SMU 01-06 23:20
PROVIDERS: ADMIT Internal Medicine; ATTEND Internal Medicine
PROC: 02HV33Z Insertion of Infusion Device into Superior Vena Cava, Percutaneous Approach (ICD-10-PCS; principal; 2020-01-01)
PROC: B548ZZA Ultrasonography of Superior Vena Cava, Guidance (ICD-10-PCS; 2020-01-01)
DX: A41.9 Sepsis, unspecified organism (principal); U07.1 COVID-19; J18.9 Pneumonia, unspecified organism; G92 Toxic encephalopathy; E43 Unspecified severe protein-calorie malnutrition; K85.90 Acute pancreatitis without necrosis or infection, unspecified; N17.9 Acute kidney failure, unspecified; E87.0 Hyperosmolality and hypernatremia; I69.351 Hemiplegia and hemiparesis following cerebral infarction affecting right dominant side; Z68.1 Body mass index [BMI] 19.9 or less, adult; K80.51 Calculus of bile duct without cholangitis or cholecystitis with obstruction; N10 Acute pyelonephritis; E78.5 Hyperlipidemia, unspecified; Z66 Do not resuscitate; E86.0 Dehydration; F03.90 Unspecified dementia, unspecified severity, without behavioral disturbance, psychotic disturbance, mood disturbance, and anxiety; H54.62 Unqualified visual loss, left eye, normal vision right eye; I12.9 Hypertensive chronic kidney disease with stage 1 through stage 4 chronic kidney disease, or unspecified chronic kidney disease; I48.0 Paroxysmal atrial fibrillation; K40.90 Unilateral inguinal hernia, without obstruction or gangrene, not specified as recurrent; M51.9 Unspecified thoracic, thoracolumbar and lumbosacral intervertebral disc disorder; S60.221A Contusion of right hand, initial encounter; X58.XXXA Exposure to other specified factors, initial encounter; N18.9 Chronic kidney disease, unspecified; N40.0 Benign prostatic hyperplasia without lower urinary tract symptoms; R62.7 Adult failure to thrive; Z87.440 Personal history of urinary (tract) infections; Z79.01 Long term (current) use of anticoagulants; Z79.899 Other long term (current) drug therapy; Y93.89 Activity, other specified; Y92.89 Other specified places as the place of occurrence of the external cause; Y99.8 Other external cause status
CPT/HCPCS: 36415; 71045; 76700-TC; 80048; 80053; 80074; 81000-TC; 82043; 82150-TC; 82550-TC; 82570; 82570-TC; 82962; 82977-TC; 83605; 83690-TC; 83735-TC; 83880; 83935-TC; 84100-TC; 84132-TC; 84302-TC; 84478-TC; 84484; 84550-TC; 85025; 85610-TC; 85730-TC; 86710; 87040-TC; 87081; 87086; 93005; 96365; 96368; 99285; C1751; G0378; J0456; J0610; J0696; J1815; J3475; J3480; J7042; J7050; J7060; J7131; U0003-CS